=== PATIENT | male | born 1955 | race Caucasian/White ===

== ENCOUNTER → 2017-03-28 | Outpatient (CLI) | payer MEDICARE ==
[~2017-03-28] MED LIST: ANTIBIOTIC; ASMANEX220 MCG INH; ASPI-COR81 M1 PO; ATOXIMETIN-B1 CAP PO; Albuterol Sulfat3 M1 NEB; BRETHINE2.5 MG PO; CARDI-OMEGA1000 MG PO; CEFTIN500 MG PO; CIPROFLOXACIN500 MG PO; DELTASONE10 MG PO; FENOFIBRATE160 MG PO; FISH OIL 10001000 MG PO; GLUCOPHAGE500 MG PO; GLUCOSAMINE S1000 MG PO; HYDR12.5C PO; HYDROCODONE BIT1 T11 PO; IMDUR30 MG PO; ISOSORBIDE30 MG PO; LACTULOSE10 GM/151 PO; LASIX20 MG PO; LISINOPRIL/HCTZ1 TA3 PO; LISINOPRIL10 MG PO; LOVASTATIN10 MG PO; LOVASTATIN20 MG PO; LOVASTATIN40 MG PO; METOPROLOL SR100 MG PO; METOPROLOL SR50 MG PO; MICRO-K 1010 MEQ PO; OMEPRAZOLE DR20 M1 PO; PLAVIX75 MG PO; PREDNISONE20 MG PO; PRILOSEC20 MG PO; PROAIR HFA0.09 MG/AC IH; SYMBICORT1 AE1 INH; THEOPHYLLINE E400 MG PO; UNIPHYL400 MG PO; VITAMIN C500 MG PO
== END | disposition home or self-care (01) ==
LOC: RAD 10:59
DX: M48.07 Spinal stenosis, lumbosacral region (principal); M47.896 Other spondylosis, lumbar region; M48.06 Spinal stenosis, lumbar region; M47.817 Spondylosis without myelopathy or radiculopathy, lumbosacral region

== ENCOUNTER 2017-12-16 11:20 | Emergency (ER) | payer MEDICARE ==
[~2017-12-16] VITALS: Wt 104.3 kg
[2017-12-16 12:25] LABS: HEMATOCRIT 45.5 % (42.0-52.0); MEAN CELL VOLUME 86.7 fl (80.0-94.0); MEAN CORPUSCULAR HGB 28.6 pg (27.0-31.0); PLATELET COUNT AUTOMATED 237 10*3/uL (130-400); RED BLOOD COUNT 5.25 10*6/uL (4.50-5.90); RED CELL DISTRI WIDTH 14.4 % (0-14.5); WHITE BLOOD COUNT 26.4 10*3/uL (4.8-10.8)
[2017-12-16 12:34] LABS: ACT PARTIAL THROMBO TIME 23.9 SECONDS (20.8-31.5)
[2017-12-16 12:42] LABS: ALKALINE PHOSPHATASE 37 U/L (45-117); BUN 27 mg/dl (7-24); CHLORIDE 97 mmol/L (98-107); CREATININE 2.01 mg/dL (0.70-1.30); POTASSIUM 3.9 mmol/L (3.5-5.1); SGOT/AST 35 IU/L (3-35); SGPT/ALT 50 U/L (12-78); SODIUM 133 mmol/L (136-145); TOTAL PROTEIN 7.4 gm/dL (6.4-8.2); TROPONIN I < 0.015 ng/ml (<0.045)
[2017-12-16 12:52] LABS: PLATELET SUFFICIENCY NORMAL (NORMAL); TOTAL CELLS COUNTED 100 #CELLS
[2017-12-16 13:39] LABS: BILIRUBIN NEGATIVE (NEGATIVE); BLOOD NEGATIVE (NEGATIVE); CLARITY SL CLOUDY (CLEAR); COLOR YELLOW (YELLOW); GLUCOSE NEGATIVE (NEGATIVE); KETONE NEGATIVE (NEGATIVE); LEUKO ESTERASE NEGATIVE (NEGATIVE); NITRITE NEGATIVE (NEGATIVE); UROBILINOGEN 0.2 E.U./dl (0.2-1.0)
[2017-12-16 13:45] LABS: URINE AMPHETAMINES < 1000 (1000ng/ml); URINE BARBITURATES < 200 (200ng/ml); URINE BENZODIAZEPINES < 200 (200ng/ml); URINE CANNABINOIDS (THC) < 50 (50ng/ml); URINE COCAINE < 300 (300ng/ml); URINE METHADONE < 300 (300ng/ml); URINE OPIATES > 300 (300ng/ml); URINE PHENCYCLIDINE < 25 (25ng/ml)
[2017-12-16 13:51] LABS: BACTERIA TRACE
[2017-12-16 20:25] VITALS: BP 122/72
== END 2017-12-16 21:10 | disposition short-term general hospital (02) ==
LOC: ED 11:20
PROVIDERS: Emergency Medicine
DX: S32.018A Other fracture of first lumbar vertebra, initial encounter for closed fracture (principal); S32.028A Other fracture of second lumbar vertebra, initial encounter for closed fracture; A41.9 Sepsis, unspecified organism; R65.20 Severe sepsis without septic shock; J18.9 Pneumonia, unspecified organism; R07.89 Other chest pain; J44.9 Chronic obstructive pulmonary disease, unspecified; E11.9 Type 2 diabetes mellitus without complications; Z98.890 Other specified postprocedural states; Z79.899 Other long term (current) drug therapy; Z79.82 Long term (current) use of aspirin; W13.2XXA Fall from, out of or through roof, initial encounter; Y93.89 Activity, other specified; Y92.89 Other specified places as the place of occurrence of the external cause; Y99.9 Unspecified external cause status

== ENCOUNTER → 2018-01-29 | Outpatient (CLI) | payer MEDICARE | END | disposition home or self-care (01) | LOC: RAD 10:35 | DX: M48.061 Spinal stenosis, lumbar region without neurogenic claudication (principal); J44.9 Chronic obstructive pulmonary disease, unspecified; S32.019D Unspecified fracture of first lumbar vertebra, subsequent encounter for fracture with routine healing; Z87.891 Personal history of nicotine dependence; Z87.01 Personal history of pneumonia (recurrent); X58.XXXD Exposure to other specified factors, subsequent encounter ==

== ENCOUNTER → 2018-04-28 | Outpatient (CLI) | payer MEDICARE | END | disposition home or self-care (01) | LOC: US 09:15 | DX: Z13.6 Encounter for screening for cardiovascular disorders (principal); K76.0 Fatty (change of) liver, not elsewhere classified; N32.89 Other specified disorders of bladder; N18.3 Chronic kidney disease, stage 3 (moderate) ==

== ENCOUNTER → 2018-09-17 | Outpatient (CLI) | payer MEDICARE | END | disposition home or self-care (01) | LOC: RAD 11:24 | DX: J43.9 Emphysema, unspecified (principal); I10 Essential (primary) hypertension; E11.9 Type 2 diabetes mellitus without complications; I25.10 Atherosclerotic heart disease of native coronary artery without angina pectoris; F17.210 Nicotine dependence, cigarettes, uncomplicated; Z95.5 Presence of coronary angioplasty implant and graft; Z95.0 Presence of cardiac pacemaker ==

== ENCOUNTER 2019-01-19 08:29 | Inpatient (IN) | payer MEDICARE ==
[2019-01-19] VITALS (9 sets, daily range): BP systolic 94–129; BP diastolic 54–92
[~2019-01-19] VITALS: Ht 185.4 cm; Wt 101.3 kg
--- NOTE | ~2019-01-19 | CON ---
[place], [place] REPORT OF CONSULTATION NAME: SANTOS AMAYA UNIT #: [id number] ROOM: 504 [facility] BIRTHDATE: [birth year] DOS: 01/19/2019 CARDIOLOGY CONSULTATION HISTORY OF PRESENT ILLNESS: The patient is a 63-year-old man. The patient came with a recurrent chest discomfort, progressive dyspnea. No workup done for the patient for the last several years including the stress heart catheterization or echocardiogram. The chest discomfort has progressively increased in the last several days, sometimes significantly severe. The patient came to the [facility] Emergency Room. The patient apparently has a left lower lobe pneumonia with infiltrate, but not critical and hemodynamically and cardiopulmonary status is fairly stable. History of chronic obstructive airway disease, coronary artery disease. The patient has a history of diabetes. The patient had 1 time fall from the roof, fracture of the transverse process of the spine without cord injury, hypertension, hypertensive cardiovascular disease, dyslipidemia. The patient has a permanent pacemaker. The patient has a history of back surgery in the past. No history of smoking, no alcohol intake and a former smoker, but not at this time. Quit smoking 15 years; prior to that, he smoked for 40 years. ALLERGIES: No known allergies. PHYSICAL EXAMINATION: VITAL SIGNS: Stable. Blood pressure 116/70, heart rate is 80. Afebrile. GENERAL: Alert, not in any acute distress. NECK: No jugular vein distention. LUNGS: Diminished breath sound at the bases, bibasilar rhonchi. HEART: S1, S2 regular, 1-2/6 systolic murmur. ABDOMEN: Soft. Color is good, not diaphoretic. EXTREMITIES: No cyanosis. IMPRESSION: No evidence of acute myocardial infarction noted. No significant cardiac decompression at this time. LABORATORY DATA: His electrolytes are unremarkable. Troponin is negative. Hemoglobin is 16.9. GFR is normal. PLAN: Lexiscan Cardiolite to evaluate for ischemic heart disease. I will review the echocardiogram and if it is abnormal coronary artery possibly interven and otherwise conservative medical therapy explained to the patient. The patient was aware of it. Thank you very much for asking me to see the patient. We will follow the patient. [place], [place] REPORT OF CONSULTATION NAME: SANTOS AMAYA Vickie UNIT #: [id number] ROOM: [facility] DOCTOR: KOFI REID MD, FACC BIRTHDATE: [birth year] KOFI REID MD CM:CONSTR:REPORT OF CONSULTATION 0925 01/29/19 1454 interface
--- NOTE | ~2019-01-19 | EKG ---
[place], [place] ELECTROCARDIOGRAM REPORT NAME: SANTOS AMAYA UNIT #: [id number] ROOM: 504 DOCTOR: LEMUEL DRAFT REPORT BIRTHDATE: [address] 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
--- NOTE | ~2019-01-19 | EKG ---
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
--- NOTE | ~2019-01-19 | ST ---
[place], [place] EXERCISE STRESS TEST REPORT NAME: SANTOS AMAYA UNIT #: [id number] ROOM: 504 DOCTOR: FRANKLIN GOLDEN [facility]FI BIRTHDATE: [birth year] DOS: 01/20/2019 The patient has a recurrent chest discomfort. No stress for long time and progressively increasing and he came to the hospital. The patient received Lexiscan 0.4 mg over 10 seconds. Heart rate is 100, complete left bundle branch block, difficult to comment on the ischemic changes in the EKG. Isotope was injected. Myocardial perfusion scan to follow. No complication noted. KOFI REID MD CM:STRESS:EXERCISE STRESS TEST REPORT [id number] [facility]
[~2019-01-19 08:29] MED LIST changes: +FENOFIBRATE145 M1 PO; -FENOFIBRATE160 MG PO; +FISH OIL 1,0001 EAC4 PO; -FISH OIL 10001000 MG PO; +GLUCOSAMINE SU500 MG PO
[2019-01-19 08:50] LABS: BASO # 0.1 10*3/uL (0.0-0.1); BASO % 0.3 % (0.0-1.0); EOS % 0.1 % (1.0-4.0); HEMATOCRIT 50.8 % (42.0-52.0); HEMOGLOBIN 16.9 g/dl (14.0-18.0); LYMPH # 0.8 10*3/uL (1.3-4.4); LYMPH % 5.2 % (27.0-41.0); MEAN CELL VOLUME 84.5 fl (80.0-94.0); MEAN CORPUSCULAR HGB 28.1 pg (27.0-31.0); MEAN CORPUSCULAR HGB CONC 33.3 g/dl (33.0-37.0); MEAN PLATELET VOLUME 10.1 fl (9.6-12.3); MONO # 0.7 10*3/uL (0.1-1.0); MONO % 4.5 % (3.0-9.0); NEUT # 13.9 10*3/uL (2.3-7.9); NEUT % 89.4 % (47.0-73.0); PLATELET COUNT AUTOMATED 242 10*3/uL (130-400); RED BLOOD COUNT 6.01 10*6/uL (4.50-5.90); RED CELL DISTRI WIDTH 14.3 % (0-14.5); WHITE BLOOD COUNT 15.5 10*3/uL (4.8-10.8)
[2019-01-19 09:03] LABS: ACT PARTIAL THROMBO TIME 26.3 SECONDS (20.0-32.1); INTERNATIONAL NORM RATIO 1.1 (2.0-3.5)
[2019-01-19 09:07] LABS: ALBUMIN 3.6 gm/dl (3.1-4.5); ALKALINE PHOSPHATASE 39 U/L (45-117); BUN 21 mg/dl (7-24); CHLORIDE 108 mmol/L (98-107); CREATININE 1.17 mg/dL (0.70-1.30); SGOT/AST 18 IU/L (3-35); SGPT/ALT 28 U/L (12-78); SODIUM 140 mmol/L (136-145); TOTAL PROTEIN 6.9 gm/dL (6.4-8.2); TROPONIN I 0.043 ng/ml (<0.045)
--- NOTE | 2019-01-19 18:00 | NUR ---
A 63, admitted to 5E, under the services of TAYO Rajan DO with a diagnosis of CHEST PAIN. Chief complaint is SHORTNESS OF BREATH, COUGH AND CHEST PAIN. Patient arrived via stretcher from ER. Monitor applied. Initial assessment completed. Vital signs taken and recorded. TAYO RAJAN DO notified of admission to the unit. Orders received. See assessment for past medical history, medications and allergies. Patient and/or family oriented to unit. Clothing/patient valuable form completed. ELIJAH NEW
[2019-01-19] MEDS ORDERED: POTASSIUM CHLO10 MEQ PO (18:59)
[2019-01-19] MEDS ORDERED: LACTULOSE10 GM/151 PO (19:00)
[2019-01-19] MEDS ORDERED: FLOVENT DISKUS50 MCG INH (19:02)
[2019-01-19] MEDS ORDERED: PANTOPRAZOLE SO40 MG PO (19:04)
[2019-01-19] MEDS ORDERED: VITAMIN C500 M8 PO (19:05)
[2019-01-19] MEDS ORDERED: VITAMIN D5000 UNI1 PO (19:07)
[2019-01-19] MEDS ORDERED: MEN'S ONE DAIL1 EACH PO (19:08)
[2019-01-19] MEDS ORDERED: LISINOPRIL-HCT1 EACH PO (19:09)
[2019-01-19] MEDS ORDERED: CYCLOBENZAPRINE10 MG PO (19:10)
[2019-01-20] VITALS: BP 126/72
--- NOTE | 2019-01-20 07:15 | NUR ---
INFORMED CONSENT SIGNED FOR LEXISCAN STRESS TEST WITH DR. REID. RESTING EKG PACED, HR 84, BP 106/70. PULSE OX 95% AND LUNGS CLEAR. COMPLETED ONE MINUTE OF LEXISCAN PROTOCOL RECEIVING LEXISCAN 0.4MG OVER 10 SECONDS. NO ARRHYTHMIAS NOTED AND NONDIAGNOSTIC ST CHANGES NOTED. PT HAD NO C/O. LAST RECOVERY HR 98, BP 110/68. WAITING NUCLEAR SCANNING IN STABLE CONDITION.
[2019-01-20 08:00] VITALS: BP 120/76
[2019-01-20 08:41] LABS: HEMATOCRIT 45.5 % (42.0-52.0); MEAN CELL VOLUME 85.5 fl (80.0-94.0); MEAN CORPUSCULAR HGB 28.2 pg (27.0-31.0); MEAN PLATELET VOLUME 10.1 fl (9.6-12.3); PLATELET COUNT AUTOMATED 217 10*3/uL (130-400); RED BLOOD COUNT 5.32 10*6/uL (4.50-5.90); RED CELL DISTRI WIDTH 14.6 % (0-14.5); WHITE BLOOD COUNT 22.6 10*3/uL (4.8-10.8)
--- NOTE | 2019-01-20 09:00 | NUR ---
PT RETURNED FROM CARDIAC REHAB. ASSESSMENT COMPLETED. VOICES NO NEEDS. CALL LIGHT WITHIN REACH.
[2019-01-20 09:06] LABS: ALBUMIN 3.3 gm/dl (3.1-4.5); ALKALINE PHOSPHATASE 41 U/L (45-117); BUN 14 mg/dl (7-24); CHLORIDE 109 mmol/L (98-107); CREATININE 0.87 mg/dL (0.70-1.30); FREE T4 1.08 ng/dl (0.76-1.46); POTASSIUM 3.9 mmol/L (3.5-5.1); SGOT/AST 15 IU/L (3-35); SGPT/ALT 26 U/L (12-78); SODIUM 138 mmol/L (136-145); TOTAL PROTEIN 7.1 gm/dL (6.4-8.2)
[2019-01-20 09:10] LABS: THYROID STIM HORMONE (HS) 0.342 uIU/ml (0.358-4.75)
[2019-01-20 09:16] LABS: PLATELET SUFFICIENCY NORMAL (NORMAL); TOTAL CELLS COUNTED 100 #CELLS
[2019-01-20 11:31] LABS: VITAMIN D, 25-HYDROXY 26.4 ng/mL (30-100)
[2019-01-20 12:00] VITALS: BP 131/70
--- NOTE | 2019-01-20 12:33 | NUR ---
Consulting Services Associate in to talk to patient. Patient states lives at HOME with ALONE. There are NO steps in the home. Physician: JEYSON Pharmacy: [facility] health services: NONE Patient's level of ADLs: INDEPENDENT Patient has working utilities: YES DME: NEBULIZER Follow-up physician's appointment after d/c: WILL BE MADE BY HOSPITALIST NURSE DIRECTOR ON DISCHARGE Does patient want to access PORTAL?: NO Discharge plan PT LIVES AT HOME ALONE AND STATES HE IS INDEPENDENT IN HIS CARE. DENIES ANY NEEDS ON DISCHARGE AND PLANS TO RETURN HOME IN CARE OF HIMSELF. PT CAN BE DISCHARGED TO HOME WHEN MEDICALLY STABLE. WILL CONTINUE TO FOLLOW. STATES HE WILL HAVE A RIDE HOME. SHABBIR MARTINEZ
[2019-01-20 16:00] VITALS: BP 132/85
[2019-01-20 20:00] VITALS: BP 104/77
[2019-01-20 21:31] VITALS: BP 122/80
[2019-01-21] VITALS: BP 115/74
--- NOTE | 2019-01-21 01:00 | NUR ---
PT SLEEPING AT THIS TIME. NO SIGNS OF RESPIRATORY DISTRESS. VITALS STABLE. CALL LIGHT IN REACH.
--- NOTE | 2019-01-21 03:42 | NUR ---
24 HR chart check completed.
[2019-01-21 12:00] VITALS: BP 119/69
--- NOTE | 2019-01-21 12:11 | NUR ---
PT CONTINUES TO DENY HOME NEEDS ON DISCHARGE. WILL CONTINUE TO FOLLOW.
[2019-01-21] MEDS ORDERED: VIBRAMYCIN100 MG PO (12:54)
--- NOTE | 2019-01-21 15:13 | NUR ---
Discharge instructions reviewed with patient/family. Patient receptive and verbalizes understanding. Follow-up care arranged. Written instructions given to patient/family. JULIETTE MONCADA
== END 2019-01-21 15:13 | disposition home or self-care (01) | DRG 871 ==
LOC: ED 08:29 → EDHOLD 16:24 → 5E 16:24
PROVIDERS: Emergency Medicine; Internal Medicine; ADMIT Internal Medicine
PROC: 4A02XM4 Measurement of Cardiac Total Activity, External Approach (ICD-10-PCS; principal; 2019-01-20)
PROC: 3E073KZ Introduction of Other Diagnostic Substance into Coronary Artery, Percutaneous Approach (ICD-10-PCS; principal; 2019-01-20)
DX: A41.9 Sepsis, unspecified organism (principal); J18.1 Lobar pneumonia, unspecified organism; J44.0 Chronic obstructive pulmonary disease with (acute) lower respiratory infection; J44.1 Chronic obstructive pulmonary disease with (acute) exacerbation; R65.20 Severe sepsis without septic shock; I25.9 Chronic ischemic heart disease, unspecified; I11.9 Hypertensive heart disease without heart failure; K21.9 Gastro-esophageal reflux disease without esophagitis; E78.2 Mixed hyperlipidemia; E66.3 Overweight; F41.9 Anxiety disorder, unspecified; M94.0 Chondrocostal junction syndrome [Tietze]; E87.6 Hypokalemia; E11.65 Type 2 diabetes mellitus with hyperglycemia; K76.0 Fatty (change of) liver, not elsewhere classified; I25.119 Atherosclerotic heart disease of native coronary artery with unspecified angina pectoris; Z95.5 Presence of coronary angioplasty implant and graft; I25.2 Old myocardial infarction; Z95.0 Presence of cardiac pacemaker; Z79.82 Long term (current) use of aspirin; Z79.02 Long term (current) use of antithrombotics/antiplatelets; Z91.81 History of falling; Z82.49 Family history of ischemic heart disease and other diseases of the circulatory system; Z87.891 Personal history of nicotine dependence; Z79.899 Other long term (current) drug therapy; Z68.29 Body mass index [BMI] 29.0-29.9, adult

== ENCOUNTER 2020-08-22 18:00 | Emergency (ER) | payer MEDICARE ==
[~2020-08-22] VITALS: Ht 185.4 cm; Wt 87.5 kg
[~2020-08-22 18:00] MED LIST changes: +CYCLOBENZAPRINE10 MG PO; +FLOVENT DISKUS50 MCG INH; +LISINOPRIL-HCT1 EACH PO; +MEN'S ONE DAIL1 EACH PO; +PANTOPRAZOLE SO40 MG PO; +POTASSIUM CHLO10 MEQ PO; +VIBRAMYCIN100 MG PO; +VITAMIN C500 M8 PO; +VITAMIN D5000 UNI1 PO
[2020-08-22 18:11] VITALS: BP 124/77
[2020-08-22 19:23] LABS: BASO # 0.1 10*3/uL (0.0-0.1); BASO % 0.2 % (0.0-1.0); EOS % 0.2 % (1.0-4.0); HEMATOCRIT 41.8 % (42.0-52.0); LYMPH # 1.9 10*3/uL (1.3-4.4); LYMPH % 8.2 % (27.0-41.0); MEAN CELL VOLUME 86.2 fl (80.0-94.0); MEAN CORPUSCULAR HGB 28.9 pg (27.0-31.0); MEAN CORPUSCULAR HGB CONC 33.5 g/dl (33.0-37.0); MEAN PLATELET VOLUME 9.8 fl (9.6-12.3); MONO # 0.9 10*3/uL (0.1-1.0); MONO % 4.1 % (3.0-9.0); NEUT # 19.5 10*3/uL (2.3-7.9); NEUT % 86.8 % (47.0-73.0); PLATELET COUNT AUTOMATED 232 10*3/uL (130-400); RED BLOOD COUNT 4.85 10*6/uL (4.50-5.90); RED CELL DISTRI WIDTH 13.6 % (0-14.5); WHITE BLOOD COUNT 22.5 10*3/uL (4.8-10.8)
[2020-08-22 19:42] LABS: ALBUMIN 3.5 gm/dl (3.1-4.5); ALKALINE PHOSPHATASE 36 U/L (45-117); BUN 17 mg/dl (7-24); CHLORIDE 110 mmol/L (98-107); CREATININE 0.95 mg/dL (0.70-1.30); POTASSIUM 3.6 mmol/L (3.5-5.1); SGOT/AST 15 IU/L (3-35); SGPT/ALT 32 U/L (12-78); SODIUM 141 mmol/L (136-145); TOTAL PROTEIN 6.8 gm/dL (6.4-8.2)
[2020-08-22] MEDS ORDERED: LEVOFLOXACIN750 M2 PO (20:16)
== END 2020-08-22 21:15 | disposition home or self-care (01) ==
LOC: ED 18:00
PROVIDERS: Student in an Organized Health Care Education/Training Program
DX: J18.1 Lobar pneumonia, unspecified organism (principal); I10 Essential (primary) hypertension; J44.9 Chronic obstructive pulmonary disease, unspecified; I25.10 Atherosclerotic heart disease of native coronary artery without angina pectoris; I25.2 Old myocardial infarction; Z79.2 Long term (current) use of antibiotics; Z79.899 Other long term (current) drug therapy; Z79.82 Long term (current) use of aspirin; Z95.0 Presence of cardiac pacemaker; Z98.890 Other specified postprocedural states; Z87.891 Personal history of nicotine dependence

== ENCOUNTER 2021-01-14 10:11 | Emergency (ER) | payer MEDICARE ==
[~2021-01-14] VITALS: Wt 98.4 kg
[~2021-01-14 10:11] MED LIST changes: +LEVOFLOXACIN750 M2 PO
[2021-01-14 10:14] VITALS: BP 116/82
[2021-01-14 10:43] LABS: BASO # 0.1 10*3/uL (0.0-0.1); BASO % 0.6 % (0.0-1.0); EOS # 0.1 10*3/uL (0.0-0.4); EOS % 1.1 % (1.0-4.0); HEMATOCRIT 45.8 % (42.0-52.0); LYMPH # 1.7 10*3/uL (1.3-4.4); LYMPH % 17.9 % (27.0-41.0); MEAN CELL VOLUME 86.1 fl (80.0-94.0); MEAN CORPUSCULAR HGB 28.8 pg (27.0-31.0); MEAN CORPUSCULAR HGB CONC 33.4 g/dl (33.0-37.0); MEAN PLATELET VOLUME 9.2 fl (9.6-12.3); MONO # 0.9 10*3/uL (0.1-1.0); MONO % 9.5 % (3.0-9.0); NEUT # 6.7 10*3/uL (2.3-7.9); PLATELET COUNT AUTOMATED 190 10*3/uL (130-400); RED BLOOD COUNT 5.32 10*6/uL (4.50-5.90); WHITE BLOOD COUNT 9.5 10*3/uL (4.8-10.8)
[2021-01-14 11:01] LABS: ALBUMIN 3.4 gm/dl (3.1-4.5); ALKALINE PHOSPHATASE 42 U/L (45-117); BUN 12 mg/dl (7-24); CHLORIDE 106 mmol/L (98-107); CREATININE 0.98 mg/dL (0.70-1.30); POTASSIUM 3.3 mmol/L (3.5-5.1); SGOT/AST 12 IU/L (3-35); SGPT/ALT 27 U/L (12-78); SODIUM 135 mmol/L (136-145); TOTAL PROTEIN 7.5 gm/dL (6.4-8.2)
[2021-01-14 11:11] LABS: TROPONIN I < 0.015 ng/ml (<0.045)
[2021-01-14] MEDS ORDERED: LEVOFLOXACIN500 MG PO (11:44)
[2021-01-14] MEDS ORDERED: PREDNISONE50 MG PO (11:44)
== END 2021-01-14 11:55 | disposition home or self-care (01) ==
LOC: ED 10:11
PROVIDERS: Student in an Organized Health Care Education/Training Program
DX: J44.1 Chronic obstructive pulmonary disease with (acute) exacerbation (principal); Z87.891 Personal history of nicotine dependence; Z79.899 Other long term (current) drug therapy; Z79.82 Long term (current) use of aspirin; Z95.0 Presence of cardiac pacemaker; Z98.890 Other specified postprocedural states

== ENCOUNTER → 2021-12-11 | Outpatient (CLI) | payer MEDICARE ==
[~2021-12-11] MED LIST changes: +LEVOFLOXACIN500 MG PO; +PREDNISONE50 MG PO
[2021-12-11 12:42] LABS: BASO # 0.1 10*3/uL (0.0-0.1); BASO % 0.7 % (0.0-1.0); EOS # 0.1 10*3/uL (0.0-0.4); EOS % 1.2 % (1.0-4.0); HEMATOCRIT 44.8 % (42.0-52.0); LYMPH # 1.6 10*3/uL (1.3-4.4); LYMPH % 22.3 % (27.0-41.0); MEAN CELL VOLUME 89.1 fl (80.0-94.0); MEAN CORPUSCULAR HGB 30.8 pg (27.0-31.0); MEAN CORPUSCULAR HGB CONC 34.6 g/dl (33.0-37.0); MEAN PLATELET VOLUME 9.8 fl (9.6-12.3); MONO # 1.2 10*3/uL (0.1-1.0); MONO % 16.3 % (3.0-9.0); NEUT # 4.3 10*3/uL (2.3-7.9); NEUT % 58.9 % (47.0-73.0); PLATELET COUNT AUTOMATED 184 10*3/uL (130-400); RED BLOOD COUNT 5.03 10*6/uL (4.50-5.90); RED CELL DISTRI WIDTH 16.2 % (0-14.5); WHITE BLOOD COUNT 7.3 10*3/uL (4.8-10.8)
[2021-12-11 13:03] LABS: BUN 23 mg/dl (7-24); CHLORIDE 105 mmol/L (98-107); CREATININE 1.18 mg/dL (0.70-1.30); POTASSIUM 3.5 mmol/L (3.5-5.1); SGOT/AST 43 IU/L (3-35); SGPT/ALT 65 U/L (12-78); SODIUM 140 mmol/L (136-145); TOTAL PROTEIN 7.6 gm/dL (6.4-8.2)
[2021-12-11 13:04] LABS: ALKALINE PHOSPHATASE 45 U/L (45-117)
== END | disposition home or self-care (01) ==
LOC: LAB 12:11
PROVIDERS: ATTEND Family Medicine
DX: J44.9 Chronic obstructive pulmonary disease, unspecified (principal); I49.5 Sick sinus syndrome; E87.6 Hypokalemia; F10.10 Alcohol abuse, uncomplicated

== ENCOUNTER → 2022-10-17 | Outpatient (CLI) | payer OTHER ==
[2022-10-17 11:18] LABS: BUN 14 mg/dl (9-23); CHLORIDE 103 mmol/L (98-107); CHOLESTEROL 107 mg/dL (<200); LDL CHOLESTEROL 56 mg/dL (9-159); POTASSIUM 3.9 mmol/L (3.4-5.1); SGPT/ALT 25 U/L (10-49); TRIGLYCERIDES 58 mg/dl (<150)
== END | disposition home or self-care (01) ==
LOC: LAB 10:36
PROVIDERS: ATTEND Physician Assistant
DX: I10 Essential (primary) hypertension (principal)

== ENCOUNTER → 2022-10-18 | Outpatient (CLI) | payer OTHER | END | disposition home or self-care (01) | LOC: RAD 14:59 | PROVIDERS: ATTEND Family Medicine | DX: J98.11 Atelectasis (principal); J98.4 Other disorders of lung ==

== ENCOUNTER → 2022-11-02 | Outpatient (CLI) | payer OTHER | END | disposition home or self-care (01) | LOC: CT 10-31 10:00 | PROVIDERS: ATTEND Family Medicine | DX: J43.9 Emphysema, unspecified (principal); J98.11 Atelectasis; R91.8 Other nonspecific abnormal finding of lung field; R59.0 Localized enlarged lymph nodes; K44.9 Diaphragmatic hernia without obstruction or gangrene ==

== ENCOUNTER → 2022-11-23 | Day surgery (SDC) | payer OTHER ==
[~2022-11-23] VITALS: Ht 185.4 cm; Wt 102.5 kg
[2022-11-23 09:40] VITALS: BP 112/76
[2022-11-23 10:51] VITALS: BP 102/57
[2022-11-23 11:06] VITALS: BP 108/60
[2022-11-23 11:21] VITALS: BP 85/55
[2022-11-23 11:36] VITALS: BP 100/60
[2022-11-23 11:45] VITALS: BP 99/53
== END | disposition home or self-care (01) ==
LOC: SDC 11-20 08:00
PROVIDERS: ATTEND Internal Medicine Critical Care Medicine
DX: J98.11 Atelectasis (principal); J44.9 Chronic obstructive pulmonary disease, unspecified; I25.10 Atherosclerotic heart disease of native coronary artery without angina pectoris; I25.2 Old myocardial infarction; I11.0 Hypertensive heart disease with heart failure; I50.9 Heart failure, unspecified; E78.00 Pure hypercholesterolemia, unspecified; Z87.891 Personal history of nicotine dependence; Z79.899 Other long term (current) drug therapy

== ENCOUNTER → 2022-12-03 | Outpatient (CLI) | payer OTHER | END | disposition home or self-care (01) | LOC: CARD 01:32 | PROVIDERS: ATTEND Internal Medicine Cardiovascular Disease | DX: I51.7 Cardiomegaly (principal); R06.02 Shortness of breath ==

== ENCOUNTER → 2023-01-29 | Outpatient (CLI) | payer OTHER ==
[2023-01-29 13:03] LABS: ALKALINE PHOSPHATASE 36 U/L (46-116); BUN 10 mg/dl (9-23); CHLORIDE 101 mmol/L (98-107); SGPT/ALT 26 U/L (10-49); TOTAL PROTEIN 6.9 gm/dL (6.0-8.0)
== END ==
LOC: LAB 12:12
PROVIDERS: ATTEND Student in an Organized Health Care Education/Training Program
DX: I50.9 Heart failure, unspecified (principal)

== ENCOUNTER 2023-04-04 09:53 | Emergency (ER) | payer OTHER ==
[~2023-04-04] VITALS: Wt 98.0 kg
[2023-04-04 10:09] VITALS: BP 132/62
[2023-04-04 10:39] LABS: MEAN CORPUSCULAR HGB 29.5 pg (27.0-31.0); MEAN CORPUSCULAR HGB CONC 33.2 g/dl (33.0-37.0); MEAN PLATELET VOLUME 10.2 fl (9.6-12.3); PLATELET COUNT AUTOMATED 154 10*3/uL (130-400); RED BLOOD COUNT 4.27 10*6/uL (4.50-5.90); RED CELL DISTRI WIDTH 22.6 % (0-14.5); WHITE BLOOD COUNT 14.2 10*3/uL (4.8-10.8)
[2023-04-04 10:41] LABS: MANUAL DIFF REFLEX YES
[2023-04-04] MEDS ORDERED: ELIQUIS5 M1 PO (10:55)
[2023-04-04] MEDS ORDERED: PREDNISONE20 M1 PO (10:55)
[2023-04-04] MEDS ORDERED: KENALOG 0.1%80 GM T (10:56)
[2023-04-04] MEDS ORDERED: BEVESPI AEROS10.7 GM INH (10:58)
[2023-04-04] MEDS ORDERED: METOPROLOL TART50 M1 PO (11:00)
[2023-04-04 11:01] LABS: ACT PARTIAL THROMBO TIME 30.7 SECONDS (20.0-32.1); INTERNATIONAL NORM RATIO 1.2 (2.0-3.5)
[2023-04-04 11:05] LABS: ALKALINE PHOSPHATASE 47 U/L (46-116); BUN 18 mg/dl (9-23); CHLORIDE 102 mmol/L (98-107); LIPASE 28 U/L (12-53); POTASSIUM 4.2 mmol/L (3.4-5.1); SGPT/ALT 22 U/L (10-49); TOTAL PROTEIN 7.1 gm/dL (6.0-8.0)
[2023-04-04 11:08] LABS: TOTAL CELLS COUNTED 100 #CELLS
[2023-04-04 11:09] LABS: PLATELET SUFFICIENCY NORMAL (NORMAL)
== END 2023-04-04 12:37 | disposition home or self-care (01) ==
LOC: ED 09:53
PROVIDERS: Emergency Medicine
DX: J18.9 Pneumonia, unspecified organism (principal); J44.9 Chronic obstructive pulmonary disease, unspecified; E78.5 Hyperlipidemia, unspecified; E87.6 Hypokalemia; E87.1 Hypo-osmolality and hyponatremia; J45.909 Unspecified asthma, uncomplicated; I11.0 Hypertensive heart disease with heart failure; I50.9 Heart failure, unspecified; Z88.8 Allergy status to other drugs, medicaments and biological substances; Z98.890 Other specified postprocedural states; Z95.5 Presence of coronary angioplasty implant and graft

== ENCOUNTER 2023-04-09 06:32 | Inpatient (IN) | payer OTHER, MEDICAID ==
[2023-04-09] VITALS (8 sets, daily range): BP systolic 101–143; BP diastolic 67–87
[~2023-04-09] VITALS: Ht 178 cm; Wt 96.0 kg
[~2023-04-09 06:32] MED LIST changes: +BEVESPI AEROS10.7 GM INH; +ELIQUIS5 M1 PO; +KENALOG 0.1%80 GM T; +METOPROLOL TART50 M1 PO; +PREDNISONE20 M1 PO
[2023-04-09 07:08] LABS: BASO # 0.1 10*3/uL (0.0-0.1); BASO % 0.4 % (0.0-1.0); EOS # 0.7 10*3/uL (0.0-0.4); EOS % 5.4 % (1.0-4.0); HEMATOCRIT 38.8 % (42.0-52.0); LYMPH # 0.5 10*3/uL (1.3-4.4); LYMPH % 3.5 % (27.0-41.0); MEAN CELL VOLUME 92.6 fl (80.0-94.0); MEAN CORPUSCULAR HGB 29.4 pg (27.0-31.0); MEAN CORPUSCULAR HGB CONC 31.7 g/dl (33.0-37.0); MEAN PLATELET VOLUME 9.9 fl (9.6-12.3); MONO # 0.8 10*3/uL (0.1-1.0); MONO % 5.9 % (3.0-9.0); NEUT # 11.2 10*3/uL (2.3-7.9); PLATELET COUNT AUTOMATED 127 10*3/uL (130-400); RED BLOOD COUNT 4.19 10*6/uL (4.50-5.90); RED CELL DISTRI WIDTH 22.4 % (0-14.5); WHITE BLOOD COUNT 13.4 10*3/uL (4.8-10.8)
[2023-04-09 07:28] LABS: ALKALINE PHOSPHATASE 45 U/L (46-116); BUN 9 mg/dl (9-23); CHLORIDE 98 mmol/L (98-107); POTASSIUM 3.8 mmol/L (3.4-5.1); SGPT/ALT 26 U/L (10-49); TOTAL PROTEIN 6.5 gm/dL (6.0-8.0)
[2023-04-10] VITALS: BP 117/79
[2023-04-10 06:58] LABS: HEMATOCRIT 40.5 % (42.0-52.0); MANUAL DIFF REFLEX YES; MEAN CELL VOLUME 90.8 fl (80.0-94.0); MEAN CORPUSCULAR HGB 29.4 pg (27.0-31.0); MEAN CORPUSCULAR HGB CONC 32.3 g/dl (33.0-37.0); MEAN PLATELET VOLUME 10.5 fl (9.6-12.3); PLATELET COUNT AUTOMATED 156 10*3/uL (130-400); RED BLOOD COUNT 4.46 10*6/uL (4.50-5.90); RED CELL DISTRI WIDTH 22.4 % (0-14.5); WHITE BLOOD COUNT 15.3 10*3/uL (4.8-10.8)
[2023-04-10 07:00] LABS: ALKALINE PHOSPHATASE 53 U/L (46-116); BUN 13 mg/dl (9-23); CHLORIDE 97 mmol/L (98-107); POTASSIUM 4.1 mmol/L (3.4-5.1); SGPT/ALT 24 U/L (10-49); TOTAL PROTEIN 6.8 gm/dL (6.0-8.0)
[2023-04-10 07:58] LABS: BURR CELLS FEW; PLATELET SUFFICIENCY NORMAL (NORMAL); POLYCHROMASIA SLIGHT; TOTAL CELLS COUNTED 100 #CELLS
[2023-04-10 07:59] LABS: OVALOCYTES FEW; SCHISTOCYTES FEW; TOXIC GRANULATION SLIGHT
[2023-04-10 08:00] VITALS: BP 111/71
[2023-04-10 12:00] VITALS: BP 107/65
== END 2023-04-10 14:55 | disposition short-term general hospital (02) | DRG 871 ==
LOC: ED 06:32 → 4E 09:15 → EDHOLD 09:15 → 4E 09:25
PROVIDERS: Internal Medicine; Student in an Organized Health Care Education/Training Program; ADMIT Internal Medicine; ATTEND Internal Medicine
PROC: 5A0935A Assistance with Respiratory Ventilation, Less than 24 Consecutive Hours, High Flow/Velocity Cannula (ICD-10-PCS; principal; 2023-04-10)
PROC: 0W9930Z Drainage of Right Pleural Cavity with Drainage Device, Percutaneous Approach (ICD-10-PCS; 2023-04-10)
DX: A41.9 Sepsis, unspecified organism (principal); I21.9 Acute myocardial infarction, unspecified; J18.9 Pneumonia, unspecified organism; J96.01 Acute respiratory failure with hypoxia; J93.9 Pneumothorax, unspecified; E87.1 Hypo-osmolality and hyponatremia; E44.1 Mild protein-calorie malnutrition; C34.11 Malignant neoplasm of upper lobe, right bronchus or lung; R65.20 Severe sepsis without septic shock; I25.10 Atherosclerotic heart disease of native coronary artery without angina pectoris; E78.5 Hyperlipidemia, unspecified; I10 Essential (primary) hypertension; D50.9 Iron deficiency anemia, unspecified; D69.6 Thrombocytopenia, unspecified; J98.2 Interstitial emphysema; E83.42 Hypomagnesemia; E11.65 Type 2 diabetes mellitus with hyperglycemia; K76.0 Fatty (change of) liver, not elsewhere classified; Z85.118 Personal history of other malignant neoplasm of bronchus and lung; I25.2 Old myocardial infarction; Z88.8 Allergy status to other drugs, medicaments and biological substances; Z95.0 Presence of cardiac pacemaker; Z95.5 Presence of coronary angioplasty implant and graft; Z87.891 Personal history of nicotine dependence; Z68.30 Body mass index [BMI] 30.0-30.9, adult